=== PATIENT | male | born 1945 | race Caucasian/White ===

== ENCOUNTER 2023-06-03 22:55 | Inpatient (IN) ==
[2023-06-04] MEDS: Acetaminophen IV 1 GM/100ML 1,000 MG/100 ML BAG IV ONE (00:36)
[2023-06-04] MEDS: Ondansetron 4 mg VIAL 2 MG/ML 2 ml VIAL IV ONE (00:37)
[2023-06-04 00:56] LABS: ABS Basophils 0.1 10^3/uL (0.0-0.1); ABS Lymphocytes 0.1 10^3/uL (1.0-4.8); ABS Monocytes 0.2 10^3/uL (0.0-1.1); ABS Neutrophils 6.2 10^3/uL (1.5-7.6); ABS Nucleated RBC 0.01 10^3/ul; Lymphocyte % 1.2 %; Mean Corpuscular Hemoglobin 32.5 pg (27-33); Mean Corpuscular Hgb Conc 35.2 g/dL (31-36); Mean Corpuscular Volume 92.4 fL (80-97); Mean Platelet Volume 7.5 fL (7.5-11.2); Nucleated Red Blood Cells % 0.1 %/100WBC (0.0-0.8); Platelet Count 113 10^3/uL (150-450); Red Blood Count 3.68 10^6/uL (4.06-5.63); Red Cell Distribution Width 12.9 % (12-17); White Blood Count 6.6 10^3/uL (3.6-10.2)
[2023-06-04] MEDS: Cefepime 2 GM in Dextrose 2 GM/50 ML BAG IV ONE (00:57)
[2023-06-04] MEDS: Azithromycin 500 mg/250 ml NS 500 MG/250 ML BAG IVPB ONE (00:58)
[2023-06-04 01:05] LABS: Activated Partial Thrombo Time 19.6 seconds (26.0-38.0); INR 1.18 (0.83-1.13)
[2023-06-04 01:14] LABS: Albumin 3.3 g/dL (3.2-5.2); Albumin/Globulin Ratio 1.2 (1-3); C Reactive Protein 142.81 mg/L (<8.01); Calcium 8.2 mg/dL (8.6-10.3); Creatinine, Serum 1.71 mg/dL (0.67-1.17); Globulin 2.8 g/dL (2-4); Potassium 3.5 mmol/L (3.5-5.0); Total Bilirubin 0.8 mg/dL (0.2-1.0); Total Protein 6.1 g/dL (6.4-8.9); eGFR CKD-EPI 41.2 (>60)
[2023-06-04] MEDS: Lactated Ringers 1000 ml BAG 1,000 ML IV ONE ×2 (01:20→03:23)
[2023-06-04 02:11] LABS: High Sensitivity Troponin 1 Hr 29 pg/mL (<20)
[2023-06-04 02:41] LABS: Urine Appearance Turbid; Urine Bilirubin Negative (Negative); Urine Blood 3+ (Negative); Urine Glucose Negative (Negative); Urine Ketones Trace (Negative); Urine Nitrite 2+ (Negative); Urine Protein 1+ (>=30 mg/dL) (Negative); Urine Specific Gravity 1.011 (1.002-1.030); Urine Urobilinogen Negative (Negative); Urine pH 5.5 (5.0-8.0)
[2023-06-04 02:46] LABS: Urine Bacteria 1+ /HPF (Absent); Urine Red Blood Cell 3+(>10/hpf) /HPF (0-Trace); Urine Squamous Epithelial Cell Present /HPF (Absent); Urine White Blood Cell 3+(>20/hpf) /HPF (0-Trace)
[2023-06-04 02:55] LABS: Urine Color Yellow
[2023-06-04 03:56] LABS: Magnesium 1.6 mg/dL (1.9-2.7)
[2023-06-04] MEDS: Potassium Chlor 20 meq TAB.ER PO ONE (05:02)
[2023-06-04] MEDS: LACTATED RINGERS IV ONE (08:49)
[2023-06-04] MEDS: Enoxaparin 40 MG/0.4 ML SYR SUBCUT SCH (08:52)
[2023-06-04] MEDS: cefTRIAXone 1 gm/50 mL D5W 1 GM/50 ML BAG IV SCH (09:42)
[2023-06-04] MEDS: Magnesium Sulf 4 GM/100 ML IV 4,000 MG/100 ML BAG IVPB ONE (10:38)
[2023-06-04] MEDS: cefTRIAXone 1 gm/50 mL D5W 1 GM/50 ML BAG IV ONE (13:32)
[2023-06-04] MEDS: Lactated Ringers 1000 ml BAG 1,000 ML IV SCH (15:13)
[2023-06-05] MEDS: Azithromycin 500 mg/250 ml NS 500 MG/250 ML BAG IVPB SCH (00:57)
[2023-06-05] MEDS ORDERED: Azithromycin 500 mg/250 ml NS 500 MG/250 ML BAG IVPB SCH (01:00)
[2023-06-05 05:23] LABS: ABS Lymphocytes 0.8 10^3/uL (1.0-4.8); ABS Monocytes 0.6 10^3/uL (0.0-1.1); ABS Neutrophils 4.7 10^3/uL (1.5-7.6); Eosinophil % 0.2 %; Hematocrit 33.8 % (38-53); Hemoglobin 11.7 g/dL (13.2-16.3); Lymphocyte % 13.1 %; Mean Corpuscular Hemoglobin 32.3 pg (27-33); Mean Corpuscular Hgb Conc 34.5 g/dL (31-36); Mean Corpuscular Volume 93.7 fL (80-97); Mean Platelet Volume 7.6 fL (7.5-11.2); Platelet Count 111 10^3/uL (150-450); Red Blood Count 3.61 10^6/uL (4.06-5.63); Red Cell Distribution Width 13.1 % (12-17); White Blood Count 6.2 10^3/uL (3.6-10.2)
[2023-06-05 05:52] LABS: Creatinine, Serum 1.36 mg/dL (0.67-1.17); Potassium 3.9 mmol/L (3.5-5.0); eGFR CKD-EPI 54.3 (>60)
[2023-06-05 05:59] LABS: Magnesium 2.5 mg/dL (1.9-2.7)
[2023-06-05] MEDS ORDERED: Senna TAB 8.6 mg TAB PO PRN (07:48)
[2023-06-05] MEDS ORDERED: Polyethylene Glycol 3350 17 GM PACKET PO PRN (07:48)
[2023-06-05] MEDS: Psyllium PAK PO SCH (07:58)
[2023-06-05] MEDS: Lactated Ringers 1000 ml BAG 1,000 ML IV SCH (10:40)
[2023-06-05] MEDS ORDERED: cefTRIAXone 2 gm/50 mL D5W 2 GM/50 ML BAG IV SCH (12:00)
[2023-06-05] MEDS: cefTRIAXone 2 gm/50 mL D5W 2 GM/50 ML BAG IV SCH (12:09)
[2023-06-06 06:50] LABS: Calcium 8.1 mg/dL (8.6-10.3); Creatinine, Serum 1.06 mg/dL (0.67-1.17); Potassium 3.9 mmol/L (3.5-5.0); eGFR CKD-EPI 73.2 (>60)
[2023-06-06] MEDS: Aspirin EC 81 mg TAB.EC (enteric coated) PO SCH (09:14)
[2023-06-06 10:53] VITALS: BP 128/77
== END 2023-06-06 13:30 | disposition home or self-care (01) ==
LOC: EDHOLD 22:55 → ED 22:55 → SUATTDRO 06-04 03:04 → MED 06-04 15:49
PROVIDERS: ADMIT Internal Medicine; ATTEND Internal Medicine